=== PATIENT | male | born 1970 | race Caucasian/White ===

== ENCOUNTER 2022-09-30 11:55 | Inpatient (IN) ==
[2022-09-30 13:46] LABS: Mucus,Urine Many /LPF (Occasional); RBC,Urine 1 /HPF (0-4); Urine Appearance Clear (Clear); Urine Color Yellow (Yellow)
[2022-09-30 13:47] LABS: Bilirubin,Urine Moderate mg/dL (Negative); Blood, Urine Negative (Negative); Glucose,Urine (UA) Negative (Negative); Ketones,Urine Trace mg/dL (Negative); Nitrite,Urine Positive (Negative); Protein,Urine 30 mg/dL (Negative); Urine Specific Gravity 1.025 (1.001-1.035)
[2022-09-30] MEDS ORDERED: KETOROLAC 30 MG/1 ML VIAL IV STA (14:20)
[2022-09-30] MEDS ORDERED: ONDANSETRON 4 MG/2 ML VIAL IV STA (14:20)
[2022-09-30 14:22] LABS: Basophils % 0.2 % (0.0-0.8); Eosinophils # 0.1 10*3/uL (0.0-0.87); Immature Granulocytes % 0.2 %; Immature Granulocytes Absolute 0.01 #; Lymphocytes # 0.6 10*3/uL (1.4-4.0); Lymphocytes % 12.7 % (21.2-54.2); Mean Corpuscular HGB Conc 33.3 GM/DL (32-36); Mean Corpuscular Volume 84.1 FL (87-102); Mean Platelet Volume 9.6 FL (9.6-12.0); Monocytes # 0.4 10*3/uL (0.11-0.8); Monocytes % 8.5 % (1.7-12.7); Neutrophils % 76.4 % (38.7-73.9); Platelet Count 87 T/CUMM (130-400); Red Blood Count 4.64 MC/CUMM (3.8-5.5); Red Cell Distribution Width 16.6 % (9.3-17.3)
[2022-09-30 14:32] LABS: INR 1.2; PT Patient Result 12.7 SECS (10.1-12.1); Partial Thromboplastin Time 28.3 SECS (23.7-32.9)
[2022-09-30 14:43] LABS: Bilirubin,Total 1.8 MG/DL (0.20-1.00); Calcium 8.9 MG/DL (8.5-10.1); Osmolality,Calculated 271.7 MOS/KG (273-304); Potassium 3.7 MMOL/L (3.5-5.1); Total Protein 6.8 G/DL (6.4-8.2)
[2022-09-30 14:49] LABS: Anisocytosis Slight; Hypochromia 1+; Platelet Estimate Decreased
[2022-09-30] MEDS ORDERED: clonazePAM 0.5 MG TABLET PO STA (16:52)
[2022-09-30] MEDS ORDERED: diphenhydrAMINE CAP 25 MG CAPSULE PO PRN (17:25)
[2022-09-30] MEDS ORDERED: guaiFENesin/DM ER 600-30 MG TABLET PO PRN (17:25)
[2022-09-30] MEDS ORDERED: hydrALAZINE 20 MG/1 ML VIAL IV PRN (17:25)
[2022-09-30] MEDS ORDERED: NICOTINE 21 MG/24 HR PATCH TRANSDERM PRN (17:25)
[2022-09-30] MEDS ORDERED: ZALEPLON 5 MG CAPSULE PO PRN (17:25)
[2022-09-30 18:06] LABS: Hepatitis B Core IgM Quant 0.06 Index; Hepatitis B Surface Ag Quant < 0.10 Index; Hepatitis B Surface Ag Result Non-Reactive (NonReactive); Hepatitis C Virus Ab Quant 0.06 Index; Hepatitis C Virus Ab Result Non-Reactive (NonReactive)
[2022-09-30] MEDS: ALBUTEROL/IPRATROPIUM 3 ML NEB RESP TX SCH (20:31)
[2022-09-30] MEDS: MORPHINE 2 MG/1 ML SYRINGE IV PRN (20:41)
[2022-09-30] MEDS: ONDANSETRON 4 MG/2 ML VIAL IV PRN (20:42)
[2022-10-01] MEDS: ALBUTEROL/IPRATROPIUM 3 ML NEB RESP TX SCH ×4 (01:00→19:00)
[2022-10-01] MEDS: FUROSEMIDE 40 MG/4 ML VIAL IV SCH ×3 (02:04→18:22)
[2022-10-01 06:27] LABS: Basophils % 0.6 % (0.0-0.8); Eosinophils # 0.2 10*3/uL (0.0-0.87); Eosinophils % 4.2 % (0.00-10.9); Hematocrit 34.9 VOL% (42.0-52.0); Immature Granulocytes % 0.3 %; Immature Granulocytes Absolute 0.01 #; Lymphocytes # 0.5 10*3/uL (1.4-4.0); Lymphocytes % 14.8 % (21.2-54.2); Mean Corpuscular HGB Conc 34.4 GM/DL (32-36); Mean Corpuscular Volume 83.9 FL (87-102); Mean Platelet Volume 9.9 FL (9.6-12.0); Monocytes # 0.4 10*3/uL (0.11-0.8); Neutrophils % 68.1 % (38.7-73.9); Platelet Count 76 T/CUMM (130-400); Red Blood Count 4.16 MC/CUMM (3.8-5.5); Red Cell Distribution Width 16.8 % (9.3-17.3); White Blood Count 3.6 T/CUMM (4-12)
[2022-10-01 06:58] LABS: Albumin 2.7 G/DL (3.4-5.0); Bilirubin,Total 1.2 MG/DL (0.20-1.00); Calcium 8.2 MG/DL (8.5-10.1); Osmolality,Calculated 275.5 MOS/KG (273-304); Potassium 3.4 MMOL/L (3.5-5.1); Total Protein 6.2 G/DL (6.4-8.2)
[2022-10-01 07:22] LABS: Anisocytosis 1+; Platelet Estimate Decreased
[2022-10-01] MEDS ORDERED: POTASSIUM CHLORIDE RIDER 10 MEQ/100 ML PREMIX IV PRN (08:44)
[2022-10-01] MEDS: PANTOPRAZOLE 40 MG TABLET PO SCH (09:33)
[2022-10-01] MEDS: LACTULOSE 20 GM/30 ML UDCUP PO SCH ×2 (09:40→20:49)
[2022-10-01 14:55] LABS: Neutrophils,Peritoneal Fluid 7 %; RBC,Peritoneal Fluid 506 T/CUMM
[2022-10-01] MEDS: MORPHINE 2 MG/1 ML SYRINGE IV PRN ×2 (14:58→20:44)
[2022-10-02] MEDS: ALBUTEROL/IPRATROPIUM 3 ML NEB RESP TX SCH ×4 (01:02→20:05)
[2022-10-02 05:27] LABS: Basophils % 0.7 % (0.0-0.8); Eosinophils # 0.2 10*3/uL (0.0-0.87); Eosinophils % 3.9 % (0.00-10.9); Hematocrit 36.5 VOL% (42.0-52.0); Hemoglobin 12.1 GM/DL (14.0-18.0); Immature Granulocytes % 0.2 %; Immature Granulocytes Absolute 0.01 #; Lymphocytes # 0.7 10*3/uL (1.4-4.0); Lymphocytes % 16.2 % (21.2-54.2); Mean Corpuscular HGB Conc 33.2 GM/DL (32-36); Mean Corpuscular Volume 84.1 FL (87-102); Mean Platelet Volume 10.4 FL (9.6-12.0); Monocytes # 0.4 10*3/uL (0.11-0.8); Monocytes % 10.2 % (1.7-12.7); Neutrophils % 68.8 % (38.7-73.9); Red Blood Count 4.34 MC/CUMM (3.8-5.5); Red Cell Distribution Width 16.6 % (9.3-17.3); White Blood Count 4.3 T/CUMM (4-12)
[2022-10-02 05:29] LABS: Platelet Count 78 T/CUMM (130-400)
[2022-10-02 06:02] LABS: Platelet Estimate Decreased
[2022-10-02 09:47] LABS: Albumin 2.7 G/DL (3.4-5.0); Bilirubin,Total 1.1 MG/DL (0.20-1.00); Calcium 7.7 MG/DL (8.5-10.1); Osmolality,Calculated 277.4 MOS/KG (273-304); Potassium 3.2 MMOL/L (3.5-5.1); Total Protein 6.2 G/DL (6.4-8.2)
[2022-10-02] MEDS: PANTOPRAZOLE 40 MG TABLET PO SCH (10:03)
[2022-10-02] MEDS: LACTULOSE 20 GM/30 ML UDCUP PO SCH ×2 (10:04→21:10)
[2022-10-02] MEDS: FUROSEMIDE 40 MG/4 ML VIAL IV SCH (10:04)
[2022-10-02] MEDS: MORPHINE 2 MG/1 ML SYRINGE IV PRN (11:11)
[2022-10-02] MEDS: ONDANSETRON 4 MG/2 ML VIAL IV PRN (11:13)
[2022-10-02] MEDS ORDERED: POTASSIUM CHLORIDE 20 MEQ TABLET PO ONE (12:08)
[2022-10-02] MEDS: CALCIUM (CARBONATE)/VITAMIN D 600 MG-400 UNIT TABLET PO SCH (12:46)
[2022-10-02] MEDS: SPIRONOLACTONE 50 MG TABLET PO SCH (16:16)
[2022-10-03] MEDS: ALBUTEROL/IPRATROPIUM 3 ML NEB RESP TX SCH ×4 (02:17→19:25)
[2022-10-03 04:52] LABS: Basophils % 0.3 % (0.0-0.8); Eosinophils # 0.2 10*3/uL (0.0-0.87); Eosinophils % 4.4 % (0.00-10.9); Hematocrit 35.8 VOL% (42.0-52.0); Hemoglobin 11.6 GM/DL (14.0-18.0); Immature Granulocytes % 0.3 %; Immature Granulocytes Absolute 0.01 #; Lymphocytes # 0.7 10*3/uL (1.4-4.0); Lymphocytes % 18.1 % (21.2-54.2); Mean Corpuscular HGB Conc 32.4 GM/DL (32-36); Mean Corpuscular Volume 87.1 FL (87-102); Mean Platelet Volume 10.9 FL (9.6-12.0); Monocytes # 0.5 10*3/uL (0.11-0.8); Monocytes % 12.2 % (1.7-12.7); Neutrophils % 64.7 % (38.7-73.9); Platelet Count 65 T/CUMM (130-400); Red Blood Count 4.11 MC/CUMM (3.8-5.5); Red Cell Distribution Width 16.5 % (9.3-17.3); White Blood Count 3.9 T/CUMM (4-12)
[2022-10-03 05:07] LABS: Albumin 2.6 G/DL (3.4-5.0); Calcium 8.2 MG/DL (8.5-10.1); Osmolality,Calculated 279.3 MOS/KG (273-304); Potassium 3.1 MMOL/L (3.5-5.1)
[2022-10-03 05:31] LABS: Platelet Estimate Decreased
[2022-10-03] MEDS: LACTULOSE 20 GM/30 ML UDCUP PO SCH ×2 (08:50→21:17)
[2022-10-03] MEDS: FUROSEMIDE 40 MG TABLET PO SCH (08:51)
[2022-10-03] MEDS: CALCIUM (CARBONATE)/VITAMIN D 600 MG-400 UNIT TABLET PO SCH (08:52)
[2022-10-03] MEDS: SPIRONOLACTONE 50 MG TABLET PO SCH (08:52)
[2022-10-03] MEDS: POTASSIUM CHLORIDE 20 MEQ TABLET PO SCH (08:52)
[2022-10-03] MEDS: PANTOPRAZOLE 40 MG TABLET PO SCH (08:53)
[2022-10-03] MEDS: POTASSIUM CHLORIDE 20 MEQ TABLET PO PRN ×2 (11:16→13:24)
[2022-10-03] MEDS: MORPHINE 2 MG/1 ML SYRINGE IV PRN (13:31)
[2022-10-04] MEDS: ALBUTEROL/IPRATROPIUM 3 ML NEB RESP TX SCH ×2 (00:37→07:43)
[2022-10-04 06:07] LABS: Basophils % 0.3 % (0.0-0.8); Eosinophils # 0.2 10*3/uL (0.0-0.87); Eosinophils % 4.8 % (0.00-10.9); Hematocrit 37.9 VOL% (42.0-52.0); Hemoglobin 12.1 GM/DL (14.0-18.0); Immature Granulocytes % 0.5 %; Immature Granulocytes Absolute 0.02 #; Lymphocytes # 0.6 10*3/uL (1.4-4.0); Mean Corpuscular HGB Conc 31.9 GM/DL (32-36); Mean Corpuscular Volume 86.7 FL (87-102); Mean Platelet Volume 10.5 FL (9.6-12.0); Monocytes # 0.4 10*3/uL (0.11-0.8); Monocytes % 10.4 % (1.7-12.7); Platelet Count 63 T/CUMM (130-400); Red Blood Count 4.37 MC/CUMM (3.8-5.5); Red Cell Distribution Width 16.7 % (9.3-17.3); White Blood Count 3.7 T/CUMM (4-12)
[2022-10-04 06:33] LABS: Platelet Estimate Decreased
[2022-10-04 06:43] LABS: Albumin 2.6 G/DL (3.4-5.0); Bilirubin,Total 0.9 MG/DL (0.20-1.00); Calcium 8.5 MG/DL (8.5-10.1); Osmolality,Calculated 275.5 MOS/KG (273-304); Potassium 4.3 MMOL/L (3.5-5.1)
[2022-10-04] MEDS: LACTULOSE 20 GM/30 ML UDCUP PO SCH (08:01)
[2022-10-04] MEDS: SPIRONOLACTONE 50 MG TABLET PO SCH (08:02)
[2022-10-04] MEDS: POTASSIUM CHLORIDE 20 MEQ TABLET PO SCH (08:02)
[2022-10-04] MEDS: PANTOPRAZOLE 40 MG TABLET PO SCH (08:03)
[2022-10-04] MEDS: FUROSEMIDE 40 MG TABLET PO SCH (08:03)
[2022-10-04] MEDS: CALCIUM (CARBONATE)/VITAMIN D 600 MG-400 UNIT TABLET PO SCH (08:03)
[2022-10-04 08:41] VITALS: BP 140/84
== END 2022-10-04 10:46 | disposition home or self-care (01) | DRG 433 ==
LOC: N.ED 11:55 → SUATTDRO 17:25 → N.EDINP 17:25 → N.2E 19:13
PROVIDERS: ADMIT Family Medicine; ATTEND Hospitalist